=== PATIENT | male | born 1990 | race Caucasian/White ===

== ENCOUNTER 2021-09-11 23:26 | Emergency (ER) | payer BC ==
[~2021-09-11] VITALS: Ht 177.8 cm; Wt 90.7 kg
[2021-09-11 23:54] VITALS: BP_SYST 110
--- NOTE | 2021-09-12 | NUR ---
Patient presents to the emergency department because of left eye irritation and swelling that started 2 hours prior to arrival. Patient denies eye injury, he began to rub his eyes then symptoms getting worse. Symptoms worse after using OTC eye drops naphazoline. Patient reports associated blurred vision to affected eye. Reports stinging sensation. Left eye +redness, irritated. No other remarkable symptoms noted. Awating ER MD to evaluate and treat.
--- NOTE | 2021-09-12 00:01 | NUR ---
ER in triage examining patient.
[2021-09-12] MEDS ORDERED: TETRACAINE HCL/PF 0.5% OPHTHALMIC DROPS 4 ML OP ONE (00:30)
[2021-09-12] MEDS ORDERED: FLUORESCEIN SODIUM 1 MG OPHTHALMIC STRIP OP ONE (00:30)
[2021-09-12] MEDS ORDERED: GENTAMICIN SULFATE 0.1% TOPICAL OINT. 15 GM TP ONE (00:30)
[2021-09-12] MEDS ORDERED: GENTAMICIN SULFATE 0.3% Non-Formulary OPHT. 5 ML DROPS OP ONE (00:45)
--- NOTE | 2021-09-12 01:36 | NUR ---
Eye exam done by Dr Charles in triage room
[2021-09-12] MEDS ORDERED: TORBREX OP (01:46)
[2021-09-12 01:56] VITALS: BP_SYST 112
--- NOTE | 2021-09-12 01:56 | NUR ---
Patient given written and verbal discharge instructions and verbalizes understanding. ER MD discussed with patient the results and treatment provided. Patient in stable condition. ID arm band removed. Rx of Tobramycin eye drops given. Patient educated on pain management and to follow up with PMD. Pain Scale 0/10. Opportunity for questions provided and answered.
== END 2021-09-12 01:56 | disposition home or self-care (01) ==
LOC: SED 23:26
DX: H01.9 Unspecified inflammation of eyelid (principal); Z79.899 Other long term (current) drug therapy
CPT/HCPCS: 99283

== ENCOUNTER 2024-02-17 14:29 | Emergency (ER) | payer BC ==
[~2024-02-17] VITALS: Ht 177.8 cm; Wt 86.2 kg
[~2024-02-17 14:29] MED LIST: TORBREX OP
[2024-02-17 14:48] VITALS: BP_SYST 121; PULSE 74; RESP 18; TEMP 97.6; O2SAT 95
[2024-02-17 14:50] VITALS: BP_SYST 121; PULSE 74; RESP 18; TEMP 97.6; O2SAT 95
[2024-02-17] MEDS ORDERED: KETOROLAC TROMETHAMINE 30 MG VIAL IM ONE (15:15)
[2024-02-17 15:49] LABS: BASOPHILS # (AUTO) 0.1 K/uL (0.0-0.2); BASOPHILS % (AUTO) 0.6 % (0.0-2.0); EOSINOPHILS % (AUTO) 0.3 % (0.0-4.0); HEMATOCRIT 44.8 % (36-54); HEMOGLOBIN 15.7 g/dL (14.0-18.0); LYMPHOCYTES # (AUTO) 1.2 K/uL (1.0-5.5); LYMPHOCYTES % (AUTO) 13.1 % (20.5-51.5); MEAN CORPUSCULAR HEMOGLOBIN 31 pg (27-31); MEAN CORPUSCULAR HGB CONC 35 % (32-36); MEAN CORPUSCULAR VOLUME 88 fL (79.0-98.0); MONOCYTES # (AUTO) 0.5 K/uL (0.0-1.0); MONOCYTES % (AUTO) 5.9 % (1.7-9.3); NEUTROPHILS # (AUTO) 7.3 K/uL (1.8-7.7); NEUTROPHILS % (AUTO) 80.1 % (40.0-70.0); PLATELET COUNT (AUTO) 199 K/uL (130-430); RED BLOOD CELL COUNT(AUTO) 5.09 MIL/uL (4.2-6.2); RED CELL DISTRIBUTION WIDTH 13.1 % (9.0-15.0); WHITE BLOOD COUNT (AUTO) 9.1 K/uL (4.8-10.8)
[2024-02-17 16:05] LABS: BILIRUBIN,DIRECT 0.1 mg/dL (0.0-0.3); CALCIUM 9.2 mg/dL (8.4-11.0); CREATININE 0.97 mg/dL (0.55-1.30); POTASSIUM 3.8 mmol/L (3.5-5.1); TOTAL BILIRUBIN 0.7 mg/dL (0.0-1.0); TOTAL PROTEIN, SERUM 7.8 g/dL (6.4-8.3)
[2024-02-17] MEDS ORDERED: IBUPROFEN 800 MG TABLET PO ONE (16:30)
[2024-02-17] MEDS ORDERED: IBUP-1971 PO (16:34)
== END 2024-02-17 16:54 | disposition home or self-care (01) ==
LOC: SED 14:29
DX: R10.33 Periumbilical pain (principal); Z79.899 Other long term (current) drug therapy
CPT/HCPCS: 36415; 80048; 80076; 83690; 85025; 99284